=== PATIENT | female | born 2000 | race Caucasian/White ===

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

== ENCOUNTER 2018-10-09 13:38 | Emergency (ER) | payer MEDICAID, OTHER ==
[~2018-10-09] VITALS: Ht 160 cm; Wt 63.0 kg
[2018-10-09 13:39] VITALS: BP 114/71
== END 2018-10-09 14:46 | disposition left against medical advice (07) ==
LOC: ER 13:39
DX: A64 Unspecified sexually transmitted disease (principal); Z53.21 Procedure and treatment not carried out due to patient leaving prior to being seen by health care provider

== ENCOUNTER 2019-06-29 16:43 | Emergency (ER) | payer MEDICAID ==
[~2019-06-29] VITALS: Ht 160 cm; Wt 71.8 kg
[2019-06-29 16:47] VITALS: BP 129/72
[2019-06-29 17:55] LABS: URINE HCG NEGATIVE (NEG)
[2019-06-29 18:03] LABS: CLARITY,URINE CLEAR (Clear); COLOR,URINE YELLOW (Yellow); GLUCOSE, URINE NEGATIVE (Neg); KETONES,URINE NEGATIVE (Neg); LEUKOCYTE ESTERASE ,URINE NEGATIVE (Neg); NITRITES, URINE NEGATIVE (Neg); OCCULT BLOOD,URINE SMALL (Neg); PH,URINE 5.5 (4.8-8.0); PROTEIN,URINE NEGATIVE (Neg); UROBILINOGEN,URINE 0.2 E.U/dL (0.2-1.0)
[2019-06-29 18:19] LABS: UA COLLECTION TYPE CLN CATCH MIDSTREAM
[2019-06-29 18:20] LABS: BACTERIA,URINE FEW /HPF (Neg); MUCUS STRANDS MODERATE /LPF (Neg); SQUAMOUS EPITHELIAL CELL,UR MANY /LPF (FEW); WBC,URINE 0-4 /HPF (0-4)
== END 2019-06-29 17:49 | disposition left against medical advice (07) ==
LOC: ER 16:43
DX: R23.3 Spontaneous ecchymoses (principal); F12.90 Cannabis use, unspecified, uncomplicated; F15.90 Other stimulant use, unspecified, uncomplicated
CPT/HCPCS: 81001; 81025; 99283

== ENCOUNTER 2019-07-05 11:27 | Emergency (ER) | payer MEDICAID | END 2019-07-05 12:35 | disposition left against medical advice (07) | LOC: ER 11:28 | DX: Z00.8 Encounter for other general examination (principal); Z53.21 Procedure and treatment not carried out due to patient leaving prior to being seen by health care provider ==

== ENCOUNTER 2022-04-24 10:12 | Emergency (ER) | payer MEDICAID ==
[~2022-04-24] VITALS: Ht 167.6 cm; Wt 90.0 kg
[2022-04-24 10:15] VITALS: BP 129/83
[2022-04-24] MEDS ORDERED: metroNIDAZOLE 500mg tablet PO ONE (10:45)
[2022-04-24] MEDS ORDERED: PENICILLIN G BENZATHINE 2,400,000 UNIT/4 ML SYRINGE IM ONE (10:45)
[2022-04-24] MEDS ORDERED: azithromycin 250mg tablet PO ONE (10:45)
[2022-04-24] MEDS ORDERED: CefTRIAXone 1000mg IM Kit (w/lidocaine diluent) IM STA (10:45)
== END 2022-04-24 11:26 | disposition home or self-care (01) ==
LOC: ER 10:12
DX: A53.9 Syphilis, unspecified (principal); N76.0 Acute vaginitis; F12.90 Cannabis use, unspecified, uncomplicated; F15.90 Other stimulant use, unspecified, uncomplicated; Z72.89 Other problems related to lifestyle
CPT/HCPCS: 96372; 99284; J0561; J0696

== ENCOUNTER 2022-07-11 14:48 | Emergency (ER) | payer MEDICAID ==
[~2022-07-11] VITALS: Ht 160 cm; Wt 72.0 kg
[2022-07-11 15:21] VITALS: BP 129/92
== END 2022-07-11 18:24 | disposition home or self-care (01) ==
LOC: ER 14:49
DX: F12.10 Cannabis abuse, uncomplicated (principal); A53.9 Syphilis, unspecified; F15.10 Other stimulant abuse, uncomplicated
CPT/HCPCS: 99281

== ENCOUNTER 2023-06-17 14:13 | Emergency (ER) | payer MEDICAID | END 2023-06-17 18:29 | disposition left against medical advice (07) | LOC: ER 14:14 | DX: R21 Rash and other nonspecific skin eruption (principal); Z53.21 Procedure and treatment not carried out due to patient leaving prior to being seen by health care provider ==

== ENCOUNTER 2023-07-09 02:59 | Emergency (ER) | payer MEDICAID ==
[~2023-07-09] VITALS: Ht 160 cm; Wt 68.2 kg
[2023-07-09 03:09] VITALS: BP 120/55; PULSE 87; RESP 18; TEMP 98.3; O2SAT 99
== END 2023-07-09 07:30 | disposition left against medical advice (07) ==
LOC: ER 03:00
DX: K08.89 Other specified disorders of teeth and supporting structures (principal); Z53.21 Procedure and treatment not carried out due to patient leaving prior to being seen by health care provider
CPT/HCPCS: 99281

== ENCOUNTER 2024-04-30 19:38 | Emergency (ER) | payer MEDICAID ==
[~2024-04-30] VITALS: Ht 160 cm; Wt 87.4 kg
[2024-04-30 19:52] VITALS: BP 117/76; PULSE 80; RESP 14; O2SAT 99
[2024-04-30] MEDS ORDERED: AMOX500C2 PO (20:48)
[2024-04-30] MEDS ORDERED: amoxicillin 250mg capsule PO ONE (20:50)
[2024-04-30 21:29] VITALS: TEMP 98.1
== END 2024-04-30 21:31 | disposition home or self-care (01) ==
LOC: ER 19:39
DX: K04.7 Periapical abscess without sinus (principal); K02.9 Dental caries, unspecified; F12.90 Cannabis use, unspecified, uncomplicated; F15.10 Other stimulant abuse, uncomplicated
CPT/HCPCS: 99283